=== PATIENT | female | born 1980 | race Caucasian/White ===

== ENCOUNTER → 2017-09-27 | Outpatient (CLI) | payer BC ==
--- NOTE | 2017-09-27 15:21 | RADIOLOGY IMAGING REPORT ---
FACILITY: [facility] PATIENT NAME: Glenna Cole : 1980 MR: [id number] V: [id number] EXAM DATE: ORDERING PHYSICIAN: ANN NG TECHNOLOGIST: Location: [facility] - [place] Patient: Glenna Cole : 1980 Visit/Account:[id number] Date of Sevice: 09/27/2017 Exam type: SOFT TISSUE NON-SPECIFIC History: Palpable lump inferior lateral left elbow for 10 years, growing in the last six months Comparison: None. Findings: Numerous sonographic images were submitted over the location of patient's palpable finding. There di d appear to be a slight outward curvature of the underlying muscle although a defined mass is not pratibha ntified. No abnormal fluid collection is seen. IMPRESSION: 1. There is a slight outward bowing of the muscle in the location of patient's apparent palpable fin ding although discrete mass or fluid collection is not seen. If this remains of strong clinical conc austen an MR may be helpful Report Dictated By: Dean Calles MD at 09/27/2017 3:15 PM Report E-Signed By: Dena Calles MD at 09/27/2017 3:16 PM WSN:[id number]
== END ==
LOC: US 02:40
PROVIDERS: ATTEND Nurse Practitioner Family
DX: R22.32 Localized swelling, mass and lump, left upper limb (principal)
CPT/HCPCS: 76999